=== PATIENT | female | born 1955 | race Caucasian/White ===

== ENCOUNTER 2023-10-17 12:35 | Inpatient (IN) | payer MEDICARE, BC, SELFPAY ==
[2023-10-17] VITALS (71 sets, daily range): BP systolic 96–156; BP diastolic 50–111; PULSE 82–156; RESP 14–42; TEMP 36.9–38.7; O2SAT 88–98; BMI 27.5
--- NOTE | 2023-10-17 12:52 | ECG_ITS ---
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
--- NOTE | 2023-10-17 12:52 | XR_ITS ---
The [address] [address] Patient Name: LAURIE VALENCIA MRN: [id number] date: 1955 Sex: F Assigned Patient Location: ER Current Patient Location: ER Accession/Order Number: [id number] Exam Date: 10/17/2023 13:10 Report Date: 10/17/2023 13:25 At the request of: RAMIN PRASAD Procedure: XR chest 1V EXAM: Chest x-ray HISTORY: . Shortness of breath . COMPARISON: None. TECHNIQUE: Single view of the chest FINDINGS: Heart and vascularity are unremarkable. There is hyperexpansion of lungs and flattening in hemidiaphragms indicating COPD. Lungs are free of focal infiltrates. Capsular calcifications are noted involving both breast implants. EKG leads overlie the chest. XR/XR chest 1V IMPRESSION: 1. Changes consistent with COPD. 2. No acute heart or lung disease identified. Electronically authenticated by: BEN MEYERS Date: 10/17/2023 13:25
--- NOTE | 2023-10-17 12:55 | ED_ITS ---
HPI - SOB/Dyspnea General Chief Complaint: Shortness of Breath/Dyspnea Stated Complaint: ASTHMA ATTACK Time Seen by Provider: 10/17/23 12:52 Source: patient and EMR Mode of arrival: ambulance Limitations: no limitations History of Present Illness HPI Narrative: 68-year-old female presents for shortness of breath. She presents by paramedics who had given her 2 aerosol treatments and subcu epinephrine and transported her here. She reported them history of asthma and a 2-day history of not feeling well. She was found to have a fever upon arrival. She is able to give only limited history because she is so short of breath. Related Data Allergies Allergy/AdvReac Type Severity Reaction Status Date / Time No Known Drug Allergies Allergy Verified 10/17/23 12:55 Review of Systems ROS Narrative Not obtainable, acuity of condition PFSH PFSH Social History Smoking status: Former smoker Exam Narrative Exam Narrative: Nurses note and vital signs reviewed and patient is not hypoxic. General: The patient appears in moderate distress upon arrival. Skin: Warm, dry, no pallor noted. There is no rash noted. Head: Normocephalic, atraumatic Eye: Normal conjunctiva, no drainage Ears, Nose, Mouth, and Throat: oral mucosa is moist. Nares patent. Cardiovascular: Regular Rate and Rhythm, tachycardia Respiratory: Moderate distress, accessory muscles are being used. Breath sounds are equal and rhonchorous. Back: non-tender GI: Soft and nontender Musculoskeletal: The patient has no evidence of calf tenderness, no pitting edema, symmetrical pulses noted bilaterally Neurological: A&O, normal speech Psychiatric: Cooperative, mildly anxious Constitutional Vital Signs, click to edit/add: Last Vital Signs Temp 101.6 F H 10/17/23 12:45 Pulse 156 H 10/17/23 13:10 Resp 35 H 10/17/23 13:14 BP 139/94 H 10/17/23 13:10 Pulse Ox 96 10/17/23 13:14 O2 Del Method BIPAP 10/17/23 12:56 O2 Flow Rate 6 10/17/23 12:38 FiO2 40 10/17/23 13:14 Course Vital Signs Vital signs: Vital Signs Pulse Rate 144 H 10/17/23 12:38 Respiratory Rate 38 H 10/17/23 12:38 Blood Pressure 156/111 H 10/17/23 12:38 Pulse Oximetry 90 L 10/17/23 12:38 Oxygen Delivery Method Nasal Cannula 10/17/23 12:38 Oxygen Delivery Flow Rate 6 10/17/23 12:38 Temperature 101.6 F H 10/17/23 12:45 Pulse Rate 156 H 10/17/23 13:10 Respiratory Rate 35 H 10/17/23 13:14 Blood Pressure 139/94 H 10/17/23 13:10 Pulse Oximetry 96 10/17/23 13:14 Oxygen Delivery Method BIPAP 10/17/23 12:56 Oxygen Delivery Flow Rate 6 10/17/23 12:38 Fraction of Inspired Oxygen 40 10/17/23 13:14 MDM - SOB/Dyspnea MDM Narrative Medical decision making narrative: The patient has tested positive for influenza, negative for COVID. No infiltrate on the chest x-ray. Upon arrival she had moderate respiratory distress but has shown continued improvement given the treatment here and in the prehospital setting. She has received IV Solu-Medrol and continuous aerosol treatment. She received IV magnesium and rectal Tylenol. She has been main tained on BiPAP and is being admitted to the ICU. Findings are discussed thoroughly with the patient. Differential Diagnosis Differential diagnosis: Likely acute exacerbation of chronic obstructive airways disease, community acquired pneumonia and other (COVID, influenza) Lab Data Attestation: I reviewed the patient's lab results. Labs: Lab Results 10/17/23 10/17/23 Range/Units 12:51 12:53 WBC 9.4 (4.0-11.0) 10^3/uL RBC 4.69 (4.20-5.40) 10^6/uL Hgb 14.1 (12.0-16.0) g/dL Hct 42.9 (36.0-48.0) % MCV 91.5 (81.0-99.0) fL MCH 30.1 (26.7-34.0) pg MCHC 32.9 (29.9-35.2) g/dL RDW 13.6 (11.0-15.0) % Plt Count 222 (150-450) 10^3/uL MPV 10.4 (9.5-13.5) fL Seg Neuts % (Manual) 91.0 Lymphocytes % (Manual) 3.0 L (20.5-60.0) % Monocytes % (Manual) 4.0 (1.7-12.0) % Eosinophils % (Manual) 1.0 (0.9-7.0) % Basophils % (Manual) 1.0 (0.2-2.0) % Neutrophils # (Manual) 8.55 H (1.4-6.5) 10^3/uL Lymphocytes # (Manual) 0.28 L (1.20-3.80) 10^3/uL Monocytes # (Manual) 0.37 (0.30-0.80) 10^3/uL Eosinophils # (Manual) 0.09 (0.00-0.70) 10^3/uL Basophils # (Manual) 0.09 (0.00-0.10) 10^3/uL Sodium 137 (136-145) mmol/L Potassium 4.4 (3.5-5.1) mmol/L Chloride 101 (98-107) mmol/L Carbon Dioxide 27.6 (21.0-32.0) mmol/L Anion Gap 12.8 BUN 18.0 (7.0-18.0) mg/dL Creatinine 0.80 (0.55-1.02) mg/dL Est GFR ( Amer) >60 (>=60) Est GFR (Non-Af Amer) >60 (>=60) BUN/Creatinine Ratio 22.5 Glucose 169 H (74-106) mg/dL Lactate 1.5 (0.4-2.0) mmol/L Calcium 9.2 (8.5-10.1) mg/dL Total Bilirubin 0.4 (0.2-1.0) mg/dL AST 21 (15-37) U/L ALT 32 (14-59) U/L Alkaline Phosphatase 76 (46-116) U/L Troponin I High Sens 35.1 (4.0-51.3) pg/mL Total Protein 7.0 (6.4-8.2) g/dL Albumin 3.7 (3.4-5.0) g/dL Globulin 3.3 g/dL Albumin/Globulin Ratio 1.1 Procalcitonin <0.05 (0.00-0.50) ng/mL Influenza Type A Ag Positive A Influenza Type B Ag Negative SARS-CoV-2 Ag (CV2AG) Negative (NEGATIVE) Imaging Data Chest x-ray: Radiologist's impression: ITS Impressions Chest X-Ray 10/17/23 12:52 IMPRESSION: 1. Changes consistent with COPD. 2. No acute heart or lung disease identified. Electronically authenticated by: BEN MEYERS Date: 10/17/2023 13:25 ECG Data Attestation: I personally reviewed and interpreted this ECG as follows: (EKG on my interpretation shows sinus tachycardia) Critical Care Time Critical Care Time Critical Care Time: Yes Total Critical Care Time: 60 Attestation: Due to the high probability of sudden and clinically significant deterioration in the patient's condition he/she required the highest level of my preparedness to intervene urgently I provided critical care time including documentation time, medication orders and management, reevaluation, vital sign assessment, ordering and reviewing of lab tests, ordering and reviewing of x-ray studies, and admission orders. Aggregate critical care time is 60 minutes including only time during which I was engaged in work directly related to his/her care and did not include time spent treating other patients simultaneously. Discharge Plan Discharge Chief Complaint: Shortness of Breath/Dyspnea Clinical Impression: Acute exacerbation of chronic obstructive pulmonary disease, Influenza Patient Disposition: Admitted As Inpatient Time of Disposition Decision: 13:53 Condition: Fair
[2023-10-17] MEDS: ACETAMINOPHEN 650 MG RECTAL SUPPOSITORY PR (13:01)
[2023-10-17] MEDS: METHYLPREDNISOLONE SOD SUCC PF 125 MG/2 ML VIAL IVP (13:01)
[2023-10-17 13:03] LABS: Hematocrit 42.9 % (36.0-48.0); Hemoglobin 14.1 g/dL (12.0-16.0); Mean Corpuscular HGB Conc 32.9 g/dL (29.9-35.2); Mean Corpuscular Hemoglobin 30.1 pg (26.7-34.0); Mean Corpuscular Volume 91.5 fL (81.0-99.0); Mean Platelet Volume 10.4 fL (9.5-13.5); Platelet Count 222 10^3/uL (150-450); Red Blood Count 4.69 10^6/uL (4.20-5.40); Red Cell Distribution Width 13.6 % (11.0-15.0); White Blood Count 9.4 10^3/uL (4.0-11.0)
[2023-10-17] MEDS: MAGNESIUM SULFATE IN WATER 2 GM/50 ML PREMIX IV (13:08)
[2023-10-17 13:12] LABS: Influenza Virus A Antigen Positive; Influenza Virus B Antigen Negative; Internal Control Within Normal Limits
[2023-10-17 13:15] LABS: Alanine Aminotransferase 32 U/L (14-59); Albumin Globulin Ratio 1.1; Albumin Level 3.7 g/dL (3.4-5.0); Alkaline Phosphatase 76 U/L (46-116); Anion Gap 12.8; Aspartate Amino Transferase 21 U/L (15-37); BUN Creatinine Ratio 22.5; Bilirubin Total 0.4 mg/dL (0.2-1.0); Calcium 9.2 mg/dL (8.5-10.1); Carbon Dioxide 27.6 mmol/L (21.0-32.0); Chloride 101 mmol/L (98-107); Estimated GFR (African America >60 (>=60); Estimated GFR (Non-African Ame >60 (>=60); Globulin 3.3 g/dL; Glucose 169 mg/dL (74-106); Potassium 4.4 mmol/L (3.5-5.1); Sodium 137 mmol/L (136-145)
[2023-10-17 13:17] LABS: Lactate/Lactic Acid 1.5 mmol/L (0.4-2.0); Troponin I High Sensitivity 35.1 pg/mL (4.0-51.3)
[2023-10-17 13:19] LABS: SARS-CoV-2 Ag NEGATIVE (NEGATIVE)
[2023-10-17] MEDS: LORAZEPAM 2 MG/ML 1 ML VIAL 0.5 MG IV (13:35)
[2023-10-17 13:41] LABS: Basophils Abs Manual 0.09 10^3/uL (0.00-0.10); Eosinophils Absolute Manual 0.09 10^3/uL (0.00-0.70); Lymphocytes Absolute Manual 0.28 10^3/uL (1.20-3.80); Monocytes Absolute Manual 0.37 10^3/uL (0.30-0.80); Segmented Neut Absolute Manual 8.55 10^3/uL (1.4-6.5)
[2023-10-17 13:45] LABS: PROCALCITONIN <0.05 ng/mL (0.00-0.50)
[2023-10-17 14:17] LABS: ABG PCO2 40.9 mmHg (35.0-45.0); Allen Test POSITIVE (POSITIVE); BIPAP Pressure 14/7; Fractionated Inspired Oxygen 40 %; HCO3 ABG 24.1 mmol/L (22.0-26.0); Minute Volume 15.5; O2 Mode BIPAP; Oxygen Saturation ABG 98.3 %; PO2 ABG 94.2 mmHg (80.0-100.0); Puncture Site L RADIAL; Rate 29; Tidal Volume 548
[2023-10-17 14:18] LABS: Peak Inspiratory Pressure 13
--- NOTE | 2023-10-17 15:41 | SWNOTE1 ---
SW spoke with pt in regards to being registered as self pay. She voiced she has insurance. SW made copy of medicare and [employer] card. SW sent copies to case management and Dianna in billing. Pt does live at home by herself. Her daughter is close if she needs anything. Normally is independent at home. She does not wear home oxygen, but is on it now. SW to follow as needed.
--- NOTE | 2023-10-17 16:06 | SWNOTE1 ---
SW did not complete SHIPMAN or IMM with pt, waiting to make sure her medicare is valid.
--- NOTE | 2023-10-17 16:37 | RESP.RT ---
titrated down to 3L
[2023-10-17] MEDS: ALBUTEROL SULFATE 2.5 MG/3 ML VIAL NEB 7.5 MG IH (16:40)
[2023-10-17] MEDS: SODIUM CHLORIDE 3% INHALATION 15 ML NEB 6 ML IH (16:41)
[2023-10-17] MEDS: AZITHROMYCIN 250 MG TABLET 500 MG PO (17:15)
[2023-10-17] MEDS: LACTATED RINGER'S SOLUTION 1,000 ML 125 ML IV (17:15)
[2023-10-17] MEDS: OSELTAMIVIR PHOSPHATE 75 MG CAPSULE PO (17:15)
[2023-10-17] MEDS: ENOXAPARIN SODIUM 40 MG/0.4 ML SYRINGE SUBQ (17:15)
[2023-10-17 17:29] LABS: Glucometer 165 mg/dL (74-106)
[2023-10-17] MEDS: MORPHINE SULFATE 2 MG/ML SYRINGE IV (19:51)
[2023-10-17] MEDS: IPRATROPIUM/ALBUTEROL SULFATE 3 ML AMPUL.NEB IH ×2 (19:53→23:51)
[2023-10-17] MEDS: ALPRAZOLAM 0.25 MG TABLET PO (22:09)
[2023-10-17] MEDS: METHYLPREDNISOLONE SOD SUCC PF 40 MG/ML VIAL 60 MG IVP (22:09)
[2023-10-17 22:22] LABS: Glucometer 179 mg/dL (74-106)
[2023-10-17] MEDS: INSULIN ASPART 300 UNIT/3 ML PEN SUBQ (22:23)
[2023-10-18] VITALS (32 sets, daily range): BP systolic 115–120; BP diastolic 59–75; PULSE 81–125; RESP 13–25; TEMP 36.4–37.1; O2SAT 90–98
[2023-10-18] MEDS: LACTATED RINGER'S SOLUTION 1,000 ML 125 ML IV ×3 (00:18→17:48)
[2023-10-18] MEDS: IPRATROPIUM/ALBUTEROL SULFATE 3 ML AMPUL.NEB IH ×6 (03:46→22:51)
--- NOTE | 2023-10-18 03:46 | RESP.RT ---
titrated down to 1L
[2023-10-18 05:01] LABS: Basophils Percent Auto 0.1 % (0.2-2.0); Eosinophils Percent Auto 0.1 % (0.9-7.0); Hematocrit 37.4 % (36.0-48.0); Hemoglobin 12.5 g/dL (12.0-16.0); Immature Granulocytes Abs Auto 0.05 10^3/uL (0.00-0.03); Immature Granulocytes Pct Auto 0.6 % (0.0-0.5); Lymphocytes Absolute Auto 0.2 10^3/uL (1.2-3.8); Lymphocytes Percent Auto 2.6 % (20.5-60.0); Mean Corpuscular HGB Conc 33.4 g/dL (29.9-35.2); Mean Corpuscular Hemoglobin 29.9 pg (26.7-34.0); Mean Corpuscular Volume 89.5 fL (81.0-99.0); Mean Platelet Volume 11.3 fL (9.5-13.5); Monocytes Absolute Auto 0.2 10^3/uL (0.3-0.8); Monocytes Percent Auto 1.9 % (1.7-12.0); Neutrophils Absolute Auto 7.5 10^3/uL (1.4-6.5); Neutrophils Percent Auto 94.7 % (43.0-75.0); Platelet Count 161 10^3/uL (150-450); Red Blood Count 4.18 10^6/uL (4.20-5.40); Red Cell Distribution Width 13.3 % (11.0-15.0)
[2023-10-18 05:34] LABS: Alanine Aminotransferase 26 U/L (14-59); Alkaline Phosphatase 59 U/L (46-116); Anion Gap 12.9; Aspartate Amino Transferase 28 U/L (15-37); BUN Creatinine Ratio 25.4; Bilirubin Total 0.3 mg/dL (0.2-1.0); Calcium 9.2 mg/dL (8.5-10.1); Carbon Dioxide 24.1 mmol/L (21.0-32.0); Chloride 99 mmol/L (98-107); Estimated GFR (African America >60 (>=60); Estimated GFR (Non-African Ame >60 (>=60); Globulin 3.1 g/dL; Glucose 127 mg/dL (74-106); Sodium 132 mmol/L (136-145); Total Protein 6.1 g/dL (6.4-8.2)
[2023-10-18] MEDS: METHYLPREDNISOLONE SOD SUCC PF 40 MG/ML VIAL 60 MG IVP ×3 (05:56→21:36)
[2023-10-18 07:22] LABS: Glucometer 138 mg/dL (74-106)
[2023-10-18] MEDS: OSELTAMIVIR PHOSPHATE 75 MG CAPSULE PO ×2 (08:55→21:34)
--- NOTE | 2023-10-18 09:29 | SWNOTE1 ---
SW reviewed IMM form with pt, she voiced understanding and had no questions. Pt signed form, originl given to pt and copy placed on chart.
--- NOTE | 2023-10-18 10:54 | CM.NOTE ---
Rounds made with Dr. Campbell. No discharge today. Plan is to titrate off O2 today w possible discharge tomorrow. Pt has nebulizer machine at home and Albuterol and also Advair disc inhaler.
[2023-10-18] MEDS: OMEPRAZOLE 40 MG CAPSULE.DR PO (11:03)
[2023-10-18 11:07] LABS: Glucometer 133 mg/dL (74-106)
--- NOTE | 2023-10-18 11:18 | PM.HP ---
HPI H&P: HPI History of Present Illness Chief complaint: COPD EXACERBATION/INFLUENZA Narrative: 68-year-old female with history of chronic obstructive pulmonary disease was in her usual state of health when she started to experience sore throat but when she woke up earlier on morning she had significant respiratory distress with cough, shortness of breath, wheezing. She tried to use her rescue inhaler and noted that there was no improvement in her symptoms. She presented to Emergency Department yesterday and was noted to have significant respiratory distress with increased work of breathing along with hypoxia. She She required IV Solu-Medrol,IV magnesium and continuous albuterol nebulization to stabilize and was started on BiPAP for acute respiratory failure with hypoxia. However, also revealed positive respiratory panel for influenza infection. Patient was admitted to ICU and was started on Zosyn, systemic IV steroids along with inhaled bronchodilators for chronic obstructive pulmonary disease exacerbation, respiratory failure with hypoxia and was also given Tamiflu for influenza infection Patient is still on 2 L of oxygen her saturation intermittently dropped down to 84-85 percent when she speaks. She is in much better shape from a respiratory point of view and while still short of breath and hypoxic, she has no evidence of respiratory distress anymore. She was taken off BiPAP off when she arrived to ICU and was initially put on 4 L of oxygen. Opioid HPI Opioid Management Most Recent Opioid Data: Last Pain Assessment 10/18/23 11:00 Last ORT Total Score 1 10/17/23 14:57 Last ORT Risk Category Low Risk 10/17/23 14:57 [facility] Medical History (Updated 10/18/23 @ 11:26 by Shaikh Adrian MD) GERD (gastroesophageal reflux disease) ?K21.9 - Gastro-esophageal reflux disease without esophagitis (ICD-10) COPD (chronic obstructive pulmonary disease) ?J44.9 - Chronic obstructive pulmonary disease, unspecified (ICD-10) Surgical History (Updated 10/18/23 @ 11:23 by Shaikh Adrian MD) H/O breast augmentation ?Z98.82 - Breast implant status (ICD-10) Family History (Updated 10/18/23 @ 11:24 by Shaikh Adrian MD) Sister Family history of COPD (chronic obstructive pulmonary disease) Father Family history of diabetes mellitus Family history of hypertension Mother Family history of diabetes mellitus Family history of hypertension Social History (Updated 10/18/23 @ 11:24 by Shaikh Adrian MD) Within the past year, how often did you have a drink containing alcohol: never Within the past year, how many standard drinks containing alcohol did you have on a typical day: 1 or 2 Within the past year, how often did you have six or more drinks on one occasion: never Total score: 0 Score interpretation: A score less than 3 is consistent with normal alcohol consumption. Smoking status: Current every day smoker Non-prescribed substance use: denies use Highest level of school completed/degree received: high school graduate Meds Home Medications and Allergies Home Medications Medication Instructions Recorded Confirmed Type albuterol sulfate 90 mcg/actuation 2 inh inhalation Q4H PRN shortness 10/17/23 10/17/23 History aerosol inhaler (Ventolin HFA) of breath or wheezing bupropion HCl 150 mg tablet,12 hr 150 mg PO BID 10/17/23 10/17/23 History sustained-release fluticasone 100 mcg-salmeterol 50 1 inh inhalation BID 10/17/23 10/17/23 History mcg/dose blistr powdr for inhalation pantoprazole 40 mg tablet,delayed 40 mg PO DAILY 10/17/23 10/17/23 History release Allergies Allergy/AdvReac Type Severity Reaction Status Date / Time No Known Drug Allergies Allergy Verified 10/17/23 12:55 Exam Constitutional Vital Signs, click to edit/add: Last Vital Signs Temp 98.3 F 10/18/23 07:00 Pulse 98 H 10/18/23 10:56 Resp 24 10/18/23 07:25 BP 116/66 10/18/23 07:13 Pulse Ox 92 L 10/18/23 10:56 O2 Del Method Room Air 10/18/23 10:56 O2 Flow Rate 1 10/18/23 07:21 FiO2 40 10/17/23 13:14 Documenting provider has reviewed patient's vital signs: yes Common normals: no apparent distress and oriented x3 General appearance: cooperative HENMT Common normals: normocephalic and head/scalp atraumatic Head and scalp: normocephalic and atraumatic Eye Common normals: conjunctivae normal and no scleral icterus Conjunctiva: conjunctiva(e) normal Respiratory Common normals: normal respiratory effort Effort & inspection: able to speak in complete sentences Auscultation: wheezes expiratory wheezes and throughout and diminished lung sounds diffuse Cardio Common normals: S1 normal heart sound and S2 normal heart sound Rate: tachycardic Heart sounds: S1 normal and S2 normal GI Common normals: Normal to inspection, nondistended, normoactive bowel sounds present, soft to palpation, non-tender and no hepatosplenomegaly Palpation: soft and no hepatosplenomegaly Extremity Common normals: no clubbing, cyanosis or edema Neuro Common normals: oriented x3, moves all extremities and no focal motor deficits Psych Common normals: mental status grossly normal, denies hallucinations, denies homicidal ideation and denies suicidal ideation Results Labs Labs: Short CBC 10/17/23 10/18/23 Range/Units 12:51 04:02 WBC 9.4 8.0 (4.0-11.0) 10^3/uL Hgb 14.1 12.5 (12.0-16.0) g/dL Hct 42.9 37.4 (36.0-48.0) % Plt Count 222 161 (150-450) 10^3/uL BMP 10/17/23 10/18/23 12:51 04:02 Sodium 137 132 L Potassium 4.4 4.0 Chloride 101 99 Carbon Dioxide 27.6 24.1 BUN 18.0 17.0 Creatinine 0.80 0.67 Glucose 169 H 127 H Calcium 9.2 9.2 Liver Function 10/17/23 10/18/23 Range/Units 12:51 04:02 Total Bilirubin 0.4 0.3 (0.2-1.0) mg/dL AST 21 28 (15-37) U/L ALT 32 26 (14-59) U/L Alkaline Phosphatase 76 59 (46-116) U/L Albumin 3.7 3.0 L (3.4-5.0) g/dL ABG ABG results: 10/17/23 14:09 ABG pH 7.380 ABG pCO2 40.9 ABG pO2 94.2 ABG HCO3 24.1 ABG O2 Saturation 98.3 ABG Base Excess -1.0 Assessment and Plan Assessment and Plan (1) Sepsis: Assessment and Plan: SIRS criteria - HR > 130, RR > 30 with resp failure (hypoxia, resp distress requiring BIPAP) Interval hemodynamics now. No evidence of respiratory distress. Continue with IV fluids. Continue with Tamiflu. Monitor. Qualifiers: Sepsis type: sepsis due to unspecified organism Sepsis acute organ dysfunction status: with acute organ dysfunction Severe sepsis acute organ dysfunction type: acute respiratory failure Acute respiratory failure type: with hypoxia Severe sepsis shock status: without septic shock Qualified Code(s): A41.9 - Sepsis, unspecified organism; R65.20 - Severe sepsis without septic shock; J96.01 - Acute respiratory failure with hypoxia (2) Acute exacerbation of chronic obstructive pulmonary disease: Assessment and Plan: Due to influenza A infection. Still hypoxic and requiring 2-3 L of oxygen. However there is no evidence of increased work of breathing. Continue with systemic steroids, by mouth azithromycin. Continue with inhaled bronchodilators, systemic steroids. Wean off oxygen as tolerated. (3) Respiratory failure with hypoxia: Assessment and Plan: Hypoxic respiratory distress requiring BiPAP therapy on admission. Still requiring 2-3 L of oxygen. Treat underlying chronic obstructive pulmonary disease exacerbation. Wean off oxygen as tolerated. (4) Influenza: Assessment and Plan: Responsible for chronic obstructive pulmonary disease exacerbation and patient's presentation. She is on Tamiflu for influenza (5) COPD (chronic obstructive pulmonary disease): Assessment and Plan: Usually it is well controlled. She is on Advair along with Ventolin as needed. Qualifiers: COPD type: unspecified COPD Qualified Code(s): J44.9 - Chronic obstructive pulmonary disease, unspecified (6) GERD (gastroesophageal reflux disease): Assessment and Plan: Continue with Protonix Qualifiers: Esophagitis presence: without esophagitis Qualified Code(s): K21.9 - Gastro-esophageal reflux disease without esophagitis Plan Will require continued inpatient treatment and monitoring as patient is is still hypoxic and short of breath on exertion. Anticipate she will be medically stable for discharge tomorrow.
[2023-10-18] MEDS: BENZOCAINE/MENTHOL SORE THROAT LOZENGE 1 LOZENGE PO ×2 (12:47→21:34)
[2023-10-18 16:30] LABS: Glucometer 133 mg/dL (74-106)
[2023-10-18] MEDS: AZITHROMYCIN 250 MG TABLET 500 MG PO (17:48)
[2023-10-18] MEDS: ENOXAPARIN SODIUM 40 MG/0.4 ML SYRINGE SUBQ (17:49)
[2023-10-18 21:33] LABS: Glucometer 131 mg/dL (74-106)
[2023-10-19] VITALS (11 sets, daily range): BP systolic 109–116; BP diastolic 67–69; PULSE 91–114; RESP 18–22; TEMP 36.1–36.4; O2SAT 86–95
[2023-10-19] MEDS: LACTATED RINGER'S SOLUTION 1,000 ML 125 ML IV ×2 (03:05→10:24)
[2023-10-19] MEDS: BENZOCAINE/MENTHOL SORE THROAT LOZENGE 1 LOZENGE PO (03:22)
[2023-10-19] MEDS: IPRATROPIUM/ALBUTEROL SULFATE 3 ML AMPUL.NEB IH ×2 (03:51→07:38)
[2023-10-19 04:22] LABS: Basophils Percent Auto 0.1 % (0.2-2.0); Hematocrit 36.2 % (36.0-48.0); Hemoglobin 11.9 g/dL (12.0-16.0); Immature Granulocytes Abs Auto 0.06 10^3/uL (0.00-0.03); Immature Granulocytes Pct Auto 0.5 % (0.0-0.5); Lymphocytes Absolute Auto 0.2 10^3/uL (1.2-3.8); Lymphocytes Percent Auto 2.1 % (20.5-60.0); Mean Corpuscular HGB Conc 32.9 g/dL (29.9-35.2); Mean Corpuscular Volume 91.2 fL (81.0-99.0); Mean Platelet Volume 10.7 fL (9.5-13.5); Monocytes Absolute Auto 0.4 10^3/uL (0.3-0.8); Monocytes Percent Auto 3.1 % (1.7-12.0); Neutrophils Absolute Auto 10.5 10^3/uL (1.4-6.5); Neutrophils Percent Auto 94.2 % (43.0-75.0); Platelet Count 162 10^3/uL (150-450); Red Blood Count 3.97 10^6/uL (4.20-5.40); Red Cell Distribution Width 13.5 % (11.0-15.0); White Blood Count 11.2 10^3/uL (4.0-11.0)
[2023-10-19 04:39] LABS: Alanine Aminotransferase 26 U/L (14-59); Albumin Globulin Ratio 0.9; Albumin Level 2.8 g/dL (3.4-5.0); Alkaline Phosphatase 52 U/L (46-116); Anion Gap 10.5; Aspartate Amino Transferase 29 U/L (15-37); BUN Creatinine Ratio 22.1; Bilirubin Total 0.3 mg/dL (0.2-1.0); Calcium 9.1 mg/dL (8.5-10.1); Carbon Dioxide 27.6 mmol/L (21.0-32.0); Chloride 106 mmol/L (98-107); Estimated GFR (African America >60 (>=60); Estimated GFR (Non-African Ame >60 (>=60); Glucose 129 mg/dL (74-106); Potassium 4.1 mmol/L (3.5-5.1); Sodium 140 mmol/L (136-145); Total Protein 5.8 g/dL (6.4-8.2)
[2023-10-19] MEDS: OMEPRAZOLE 40 MG CAPSULE.DR PO (05:35)
[2023-10-19] MEDS: METHYLPREDNISOLONE SOD SUCC PF 40 MG/ML VIAL 60 MG IVP (05:35)
[2023-10-19] MEDS: OSELTAMIVIR PHOSPHATE 75 MG CAPSULE PO (08:45)
--- NOTE | 2023-10-19 10:27 | PT.DAILY ---
Physical Therapy Daily Note PT Daily Note/Assess Start: 10/19/23 10:17 Freq: Status: Active Protocol: Document 10/19/23 10:18 [id number] (Rec: 10/19/23 10:27 [id number]) Physical Therapy Daily Note/Assessment Time In/Time Out Time In 09:37 Time Out 09:52 Pain In Pain Level 0 Pain Out Pain Level 0 Subjective Subjective Patient received supine in bed . Agreeable to participate with PT. States she is feeling pretty good and hopes to go home today. Reports she has been using IV pole to walk to bathroom. Therapeutic Exercise Time Therapeutic Exercise Minutes (minutes) 8 Therapeutic Exercise Units 1 Therapeutic Exercise Treatment Therapeutic Exercise Treatment Seated EOB for SOUMYA LE strengthening ther ex to improve functional mobility for: ankle pumps, LAQ's, marching, hip ABD, hip ADD x 10 reps. Ther ex performed prior to walking. Therapeutic Activity Time Therapeutic Activity Minutes (minutes) 7 Therapeutic Activity Units 1 Therapeutic Activity Treatment Bed Mobility Ability Modified Independent Chair Transfer Ability Modified Independent Therapeutic Activity Comments Patient I for tomas/doff shoes. Sit to stand transfer to IV pole is NJ. Ambulated 120' x 1 with use of IV pole with NJ. Patient reports some SOB with walking and talking simultaneously. 02 level after walking is 90% HR 113, VC's for slower and deeper breaths. 02 level at 92% after ~2 minutes. Patient is NJ in return to supine in bed. Call bed within reach. Nursing notified of patient placement and acknowledged, ERNIE Guthrie. Total Physical Therapy Time Total Therapy Minutes 15 Total Physical Therapy Units 2 Summary Daily Note Summary Patient with good pace of gait and symmetrical gait pattern. No LOB with gait or turns. Does reports some SOB while walking and talking. Recommend home with family and 02 PRN.
--- NOTE | 2023-10-19 11:18 | PM.DS1 ---
DS: Providers Provider Date of admission: 10/17/23 15:03 Primary care physician: Non-Staff Physician, Consults: 10/17/23 13:53 Occupational Therapy Eval and Treat Routine Reason for consultation: Ambulatory dysfunction/weakness Physical Therapy Eval and Treat Routine Reason for consultation: Ambulatory dysfunction/weakness DS: Diagnosis Discharge Diagnosis (1) Influenza A: (2) Sepsis: Qualifiers: Sepsis type: sepsis due to unspecified organism Sepsis acute organ dysfunction status: with acute organ dysfunction Severe sepsis acute organ dysfunction type: acute respiratory failure Acute respiratory failure type: with hypoxia Severe sepsis shock status: without septic shock Qualified Code(s): A41.9 - Sepsis, unspecified organism; R65.20 - Severe sepsis without septic shock; J96.01 - Acute respiratory failure with hypoxia (3) Respiratory failure with hypoxia: (4) Acute exacerbation of chronic obstructive pulmonary disease: DS: Summary Hospital Course Hospital Course: Reason for admission: See ER note and H&P for details. 68 y/o female with a history of COPD to ER with SOB. Not feeling well for past few days. Developed severe SOB with exertion. Hard to ambulate due to symptoms and called EMS. To ER and noted severe hypoxia and tachypnea. Started on BiPAP due to increased work of breathing. Temp 101.6 and WBC normal. Chest x-ray showed changes of COPD and positive for influenza A and admitted. Hospital course: Started tamiflu for influenza. Started solu-medrol, duoneb, and zithromax for COPD exacerbation. Breathing improved and transitioned to nasal canula. Slowly improved in hospital. Less SOB and mild chest tightness. Able to decrease NC and transition to room air. Ambulating around room without difficulty. Mild cough. Normal SpO2 on room air. Discharged home in stable condition. Will take tamiflu and zithromax x 4 days. Take prednisone tapered over 12 days. Use albuterol PRN. Follow up with PCP in 2-5 days. Time Spent with Patient Time attestation: Total time spent providing and/or coordinating discharge services: Exam Constitutional Vital Signs, click to edit/add: Last Vital Signs Temp 97.5 F L 10/19/23 07:29 Pulse 114 H 10/19/23 09:49 Resp 18 10/19/23 07:29 BP 109/67 10/19/23 07:29 Pulse Ox 92 L 10/19/23 09:49 O2 Del Method Room Air 10/19/23 07:39 O2 Flow Rate 1 10/19/23 03:51 FiO2 40 10/17/23 13:14 Documenting provider has reviewed patient's vital signs: yes Common normals: no apparent distress, oriented x3 and alert HENMT Common normals: normocephalic Eye Common normals: PERRL and EOMs intact bilaterally Respiratory Auscultation: wheezes and diminished lung sounds Cardio Common normals: regular rate, regular rhythm, no gallops, no murmurs and no rub GI Common normals: Normal to inspection, nondistended, normoactive bowel sounds present and non-tender Extremity Common normals: no pedal edema DS: Data Data Completed and Pending Labs on day of discharge: Labs from last 24 hours 10/19/23 10/18/23 10/18/23 04:01 21:33 16:29 WBC 11.2 H RBC 3.97 L Hgb 11.9 L Hct 36.2 MCV 91.2 MCH 30.0 MCHC 32.9 RDW 13.5 Plt Count 162 MPV 10.7 Neut % (Auto) 94.2 H Lymph % (Auto) 2.1 L [facility] % (Auto) 3.1 Eos % (Auto) 0.0 L Baso % (Auto) 0.1 L Neut # (Auto) 10.5 H Lymph # (Auto) 0.2 L [facility] # (Auto) 0.4 Eos # (Auto) 0.0 Baso # (Auto) 0.0 Abs Immat Gran (auto) 0.06 H Imm/Tot Granulo (auto) 0.5 Sodium 140 Potassium 4.1 Chloride 106 Carbon Dioxide 27.6 Anion Gap 10.5 BUN 15.0 Creatinine 0.68 Est GFR ( Amer) >60 Est GFR (Non-Af Amer) >60 BUN/Creatinine Ratio 22.1 Glucose 129 H Calcium 9.1 Total Bilirubin 0.3 AST 29 ALT 26 Alkaline Phosphatase 52 Total Protein 5.8 L Albumin 2.8 L Globulin 3.0 Albumin/Globulin Ratio 0.9 POC Glucose 131 H 133 H Preliminary micro results at discharge 10/17/23 13:04 - Preliminary Blood NO GROWTH AT 36-48 HOURS. FINAL TO FOLLOW. 10/17/23 12:51 Blood Culture Result 1 - Preliminary Blood NO GROWTH AT 36-48 HOURS. FINAL TO FOLLOW. Discharge Plan Discharge Disposition: Home, Self-Care Condition: Fair Discharge Medications: New oseltamivir 75 mg Capsule 75 mg PO BID 4 Days Qty: 8 0RF azithromycin [Zithromax] 250 mg tablet 250 mg PO DAILY 4 Days Qty: 4 0RF Rx Instructions: start on day 2 of therapy prednisone 10 mg tablets,dose pack 10 mg PO DAILY Qty: 39 0RF Rx Instructions: 6 PO daily x 3 days, then 4 PO daily x 3 days, then 2 PO daily x 3 days, then 1 PO daily x 3 days Continued bupropion HCl 150 mg tablet sustained-release 12 hr 150 mg PO BID albuterol sulfate [Ventolin HFA] 90 mcg/actuation HFA aerosol inhaler 2 inh INHALATION Q4H PRN (Reason: shortness of breath or wheezing) fluticasone propion-salmeterol 100-50 mcg/dose blister with device 1 inh INHALATION BID pantoprazole 40 mg tablet,delayed release (DR/EC) 40 mg PO DAILY Activity: increase activity as tolerated Diet: advance to your usual diet Forms: Portal Instructions
--- NOTE | 2023-10-21 14:00 | CM.DCFOLLOWU ---
Person spoke with: patient How are you feeling? much better How is your pain? no pain Did you understand your discharge instructions? yes Do you have any questions about your discharge instructions? no Were you given any prescriptions at discharge? yes Were you able to get your prescriptions filled? yes Do you understand how to take your medications as ordered? yes Do you have any questions about your follow up appointment and do you plan to keep your follow up appointment? no questions, calling tomorrow to schedule follow up Is there anything else that you would like to discuss? no Questions/Comments/Concerns/Other: N/A
== END 2023-10-19 12:06 | disposition home or self-care (01) | DRG 871 ==
LOC: ER 14:22 → ICU 16:05 → MS 10-19 11:08 → ICU 10-21 15:05 → MS 10-21 15:05
PROVIDERS: Admitting Provider Internal Medicine; Emergency Provider Emergency Medicine; Visit Provider Family Medicine
DX: A41.9 Sepsis, unspecified organism (principal); J96.01 Acute respiratory failure with hypoxia; J44.1 Chronic obstructive pulmonary disease with (acute) exacerbation; R65.20 Severe sepsis without septic shock; J10.1 Influenza due to other identified influenza virus with other respiratory manifestations; K21.9 Gastro-esophageal reflux disease without esophagitis; R53.1 Weakness; Z87.891 Personal history of nicotine dependence; Z20.822 Contact with and (suspected) exposure to COVID-19; Z98.82 Breast implant status; Z83.3 Family history of diabetes mellitus; Z82.49 Family history of ischemic heart disease and other diseases of the circulatory system; Z79.899 Other long term (current) drug therapy
CPT/HCPCS: 0202U; 36415; 36600; 71045; 80053; 82805; 82948; 83605; 84145; 84484; 85007; 85025; 85027; 87040; 87804; 87811; 93005; 94640; 94660; 94761; 94799; 96365; 96372; 96375; 96376; 97110; 97161; 97165; 97530; 99291; J2920; J2930